=== PATIENT | female | born 1965 | race Caucasian/White ===

== ENCOUNTER 2017-01-16 07:29 | Emergency (ER) | payer SELFPAY ==
--- NOTE | 2017-01-16 07:45 | PDOC ---
History of Present Illness - General Chief Complaint: Injury Stated Complaint: RT ANKLE INJURY Time Seen by Provider: 01/16/17 07:35 History Source: Patient Exam Limitations: No Limitations - History of Present Illness Initial Comments: 01/16/17 07:40 51 y/o female twisted right ankle on stairs last night, unable to bear weight. Iced and elevated ankle, but swollen and painful. No other injury as per patient. Occurred: reports: yesterday Severity: reports: mild Pain Location: reports: lower extremity Method of Injury: Yes: fall Loss of Consciousness: no loss of consciousness Past History - Past Medical History Allergies/Adverse Reactions: Allergies Allergy/AdvReac Type Severity Reaction Status Date / Time No Known Allergies Allergy Verified 01/16/17 07:30 Home Medications: Ambulatory Orders Levothyroxine [Synthroid -] 75 mcg PO DAILY 01/16/17 Review of Systems - Review of Systems Able to Perform ROS?: Yes Is the patient limited [place] proficient: No Constitutional: No: Chills, Fever Respiratory: No: Cough, Shortness of Breath Cardiac (ROS): No: Chest Pain, Edema ABD/GI: No: Nausea, Vomiting Musculoskeletal: Yes: Joint Pain Integumentary: No: Rash Neurological: No: Paresthesia All Other Systems: Reviewed and Negative *Physical Exam - Physical Exam General Appearance: Yes: Nourished, Appropriately Dressed. No: Apparent Distress HEENT: positive: EOMI, JESSICA, Normal ENT Inspection Neck: positive: Normal Thyroid, Supple Respiratory/Chest: positive: Lungs Clear, Normal Breath Sounds Cardiovascular: positive: Regular Rhythm, Regular Rate, S1, S2. negative: Murmur Vascular Pulses: Femoral (R): 4+, Femoral (L): 4+, Carotid (R): 4+, Carotid (L) : 4+, Dorsalis-Pedis (R): 4+, Doralis-Pedis (L): 4+ Gastrointestinal/Abdominal: positive: Normal Bowel Sounds Lymphatic: negative: Adenopathy, Tenderness, Other Musculoskeletal: positive: Normal Inspection. negative: CVA Tenderness Extremity: positive: Normal Capillary Refill, Tender, Swelling. negative: Normal Inspection (right lateral ankle swollen and tender, decreased ROM, no ecchymosis or erythema, pulses 2+/4 b/l in LE, no focal deficits noted), Normal Range of Motion (decreased), Coldness, Calf Tenderness, Erythema Integumentary: positive: Normal Color, Dry, Warm Neurologic: positive: safety and skill based pay manager II-XII NML intact, Fully Oriented, Alert, Normal Mood/ Affect, Normal Response, Motor Strength 08/06 ED Treatment Course - ADDITIONAL ORDERS Additional order review: 01/16/17 08:07 X-ray right ankle: No fracture seen Progress Note - Progress Note Progress Note: Right ankle swollen r/o fracture, will obtain x-ray. *DC/Admit/Observation/Transfer Diagnosis at time of Disposition: Sprain of right ankle Qualifiers: Encounter type: initial encounter Involved ligament of ankle: anterior talofibular ligament Qualified Code(s): S93.491A - Sprain of other ligament of right ankle, initial encounter; S93.491A - Sprain of other ligament of right ankle, initial encounter - Discharge Dispostion Disposition: HOME Condition at time of disposition: Good Admit: No - Referrals Referrals: Yohannes Sauceda MD [Staff Physician] - - Patient Instructions Printed Discharge Instructions: DI for Ankle Sprain Additional Instructions: Ice, Motrin, rest, elevate Tim wrap during day, off at night Crutches, weight bearing as tolerated Follow up with Orthopedics if no improvement in 3-5 days If worsen return to ER
[2017-01-16 07:53] VITALS: BP 145/84; PULSE 80; TEMP 98.9; BMI 29.2
== END 2017-01-16 08:13 | disposition home or self-care (01) ==
LOC: FER 07:29
DX: S93.491A Sprain of other ligament of right ankle, initial encounter (principal); W10.9XXA Fall (on) (from) unspecified stairs and steps, initial encounter; Y93.89 Activity, other specified; Y92.9 Unspecified place or not applicable
CPT/HCPCS: 73610-TC-RT; 99282-25